=== PATIENT | female | born 2000 | race Caucasian/White ===

== ENCOUNTER → 2024-02-19 | Day surgery (SDC) | payer BC ==
[~2024-02-19] MED LIST: Ferumoxytol (NON ERSD) 510 MG in 0.9 % Sodium Chloride 150 ML IVPB SCH
[2024-02-19] MEDS: Ferumoxytol (NON ERSD) 510 MG in 0.9 % Sodium Chloride 150 ML IVPB SCH (09:55)
[2024-02-19 11:28] VITALS: BP 119/77; TEMP 98.5
== END ==
LOC: ONC/OP 09:05
PROVIDERS: ATTEND Physician Assistant Medical
DX: O99.019 Anemia complicating pregnancy, unspecified trimester (principal); D50.9 Iron deficiency anemia, unspecified
CPT/HCPCS: 96365; Q0138